=== PATIENT | male | born 1960 | race Caucasian/White ===

== ENCOUNTER 2020-11-21 07:52 | Outpatient (CLI) | payer MEDICARE, BC, SELFPAY ==
--- NOTE | 2020-11-21 08:04 | CT_ITS ---
WS: [id number] CT NECK TECHNIQUE: Contrast-enhanced CT of the neck with coronal and sagittal reformatted images. CLINICAL INFORMATION: ACUTE SIALOADENTITIS, MUCOCELE OF SALIVARY GLAND COMPARISON: None. DLP: 1661.[address] scans at [facility] use at least one of these dose optimization techniques: automat ed exposure control; mA and/or kV adjustment per patient size (includes targeted exams where dose is matched to clinical indication); or iterative reconstruction. FINDINGS: Palpable marker overlying the tail of the right parotid gland inferiorly. Due to the palpable marker is a well-circumscribed low-attenuation lesion measuring 1.5 x 0.9 x 1.4 cm. Associated peripheral en hancement. This appears well circumscribed. Left parotid gland appears normal. Some images degraded d ue to extensive dental beam hardening artifact. Submandibular glands are normal. Normal parapharyngeal fat. Normal posterior nasopharynx. Normal [place] tonsils. No cervical lymphadenopathy. Lung apices are well aerated. Moderate spondylitic changes cervical spin e. Partially visualized intracranial contents are normal. Mastoid air cells and paranasal sinuses are we ll aerated. CT/CT neck w con* [id number] IMPRESSION: 1. Deep to the palpable marker overlying the right neck is a well-circumscribe d low-attenuation peripheral enhancing lesion in the deep right parotid tail in feriorly. This measures 1.5 x 0.9 x 1.4 cm. This can be further evaluated with ultrasound. Recommend ENT consultation. This lesion is nonspecific but consider ations include benign and malignant parotid neoplasms or possibly necrotic lymp h node. 2. Left parotid Gland appears normal. 3. Submandibular glands are normal. 4. No evidence of supraglottic or glottic mass. 5. Normal parapharyngeal fat. 6. No cervical lymphadenopathy. 7. Moderate spondylitic changes cervical spine.
[2020-11-21] MEDS: iohexol 300 mg/mL 100 mL Btl IV (08:39)
== END 2020-11-21 07:53 | disposition home or self-care (01) ==
PROVIDERS: Visit Provider Specialist
DX: K11.21 Acute sialoadenitis (principal); K11.6 Mucocele of salivary gland
CPT/HCPCS: 70491; Q9967

== ENCOUNTER → 2022-01-15 15:05 | Outpatient (BNVA) | payer MEDICARE, BC, SELFPAY | PROVIDERS: Referring Provider Dermatology; Visit Provider Podiatrist Foot & Ankle Surgery | DX: Q82.8 Other specified congenital malformations of skin (principal); L84 Corns and callosities; M79.672 Pain in left foot; E11.9 Type 2 diabetes mellitus without complications | CPT/HCPCS: 99203 ==

== ENCOUNTER → 2022-01-15 15:43 | Outpatient (BNVA) | payer MEDICARE, BC, SELFPAY | PROVIDERS: Referring Provider Dermatology; Visit Provider Podiatrist Foot & Ankle Surgery | DX: M79.672 Pain in left foot (principal); L84 Corns and callosities | CPT/HCPCS: 73630; 99203 ==

== ENCOUNTER → 2022-02-13 08:58 | Outpatient (BNVA) | payer MEDICARE, BC, SELFPAY | PROVIDERS: Visit Provider Podiatrist Foot & Ankle Surgery | DX: Q82.8 Other specified congenital malformations of skin (principal); E11.9 Type 2 diabetes mellitus without complications; M77.42 Metatarsalgia, left foot; Z79.4 Long term (current) use of insulin | CPT/HCPCS: 17110; 99214 ==

== ENCOUNTER 2022-02-20 10:41 | Day surgery (SDC) | payer MEDICARE, BC, SELFPAY ==
[2022-02-19 11:21] VITALS: BMI 38.0
[2022-02-20] VITALS (8 sets, daily range): BP systolic 136–169; BP diastolic 73–90; PULSE 70–90; RESP 14–18; TEMP 36.2–36.8; O2SAT 97–98
--- NOTE | 2022-02-20 | SCC_ITS ---
Procedure done: Left foot distal third metatarsal floating osteotomy 54 seconds of fluoroscopic guidance, for a cumulative dose of 0.918 mGy, was provided to Dr. Rocha by the radiology department. C-arm images of the left foot were saved for the patient's permanent record. BUCK
--- NOTE | 2022-02-20 | XR_ITS ---
WS: [id number] Exam: XR foot LT 2V [id number] Date/Time of Exam: 02/20/2022 12:00 AM Reason For Exam: Left foot distal third metatarsal floating osteotomy Multiple anterior posterior C-arm images of the left forefoot are submitted for evaluation. The final AP image depicts an osteotomy involving the neck of the third metatarsal. No other postoper ative changes are identified.
--- NOTE | 2022-02-20 10:07 | ANES.PREANE2 ---
Pre-Anesthetic Assessment Height/Weight: Height 1.78 m Weight 120.202 kg Preop Diagnosis: metatarsalgia porokeratosis Operation Date: 02/20/22 12:00 Proposed Procedures p [Left foot 3rd metatarsal distal metatarsal osteotomy CPT 13150,M77.42,L98.8(Left) - Nigel Rocha DPM Familial anesthetic complications: none Was Beta Jm taken within 24 hours: N/A Was Clonidine taken within 24 hours: N/A Last intake: 02/19/22 Social Tobacco and No alcohol Exam alert, oriented x 3, clear to auscultation bilaterally and regular rate & rhythm Airway Submandibular: within normal limits Cervical ROM: within normal limits Mallampati: Class I Dentition: chipped Pulmonary Asthma, Chronic Obstructive Pulmonary Disease and Sleep Apnea CV/HEM None reported METS > 4 None reported Hepatic None reported GI None reported Metabolic Diabetes Mellitus Musc/skel Left renata metatarsalgia porokeratosis Neuropsych None reported Anesthetic Plan ASA status: 3 Anesthesia: Anesthesia Evaluation, General and MAC Other: I discussed with the patient risks, goals, and benefits of MAC and general anesthesia. We discussed spectrum of MAC anesthesia including conversion to general as well as possibility of recall of intraoperative stimuli including discomfort/pain. Patient agrees to proceed with MAC. Risk of > 500 ml blood loss (7ml/kg in children): No Medications/Allergies Home Medications Medication Instructions Recorded Confirmed Last Taken Type COVID-19 antigen test (BinaxNOW #1 ea 02/13/22 02/13/22 Unknown History COVID-19 Ag Self Test) arformoterol 15 mcg/2 mL solution 15 ml inhalation 2XD 02/13/22 02/19/22 Unknown History for nebulization (Brovana) blood sugar diagnostic (Accu-Chek #10 ea 02/13/22 02/13/22 Unknown History Ines Plus test strp) bumetanide 2 mg tablet 2 tab PO 2XD 02/13/22 02/19/22 02/19/22 History dextroamphetamine-amphetamine 20 20 ea PO 2XD 02/13/22 02/19/22 02/19/22 History mg tablet ergocalciferol (vitamin D2) 1,250 See Rx Instructions .Route .COMPLEX 02/13/22 02/19/22 02/19/22 History mcg (50,000 unit) capsule insulin aspart U-100 100 unit/mL 15 ml SUBCUT 3XD 02/13/22 02/19/22 02/19/22 History (3 mL) subcutaneous pen (Novolog Flexpen U-100 Insulin aspart) insulin detemir U-100 100 unit/mL 50 ml SUBCUT 2XD 02/13/22 02/19/22 02/19/22 History (3 mL) subcutaneous pen (Levemir FlexTouch U-100 Insulin) ketoconazole 2 % shampoo 2 ml topical 1XD 02/13/22 02/20/22 02/20/22 History levalbuterol tartrate 45 45 g inhalation DIRECTED 02/13/22 02/19/22 02/20/22 History mcg/actuation aerosol inhaler oxycodone 15 mg tablet 15 tab PO 2XD 02/13/22 02/19/22 02/19/22 History prazosin 1 mg capsule 1 cap PO 2XD 02/13/22 02/19/22 02/19/22 History sildenafil (pulm.hypertension) 20 20 ea PO 3XD 02/13/22 02/19/22 02/19/22 History mg tablet tizanidine 4 mg capsule 4 cap PO 2XD 02/13/22 02/19/22 02/19/22 History oxycodone 5 mg tablet 5 mg PO Q6H Post op pain 3 days 02/20/22 Unknown Rx #12 tabs Allergies Allergy/AdvReac Type Severity Reaction Status Date / Time NSAIDS (Non-Steroidal Allergy Severe ALGY-Anaphy Verified 02/19/22 11:07 Anti-Inflamma laxis Acetaminophen Allergy Severe ALGY-Anaphy Uncoded 02/13/22 09:05 laxis Penicillin Allergy Severe ALGY-Anaphy Uncoded 02/13/22 09:05 [facility]is [facility] Social History Smoking and tobacco status: never smoked Data Anesthesia : 02/20/22 11:17 Cardiac Studies: No Data to Display
--- NOTE | 2022-02-20 11:05 | ECG_ITS ---
[facility] Test Date: 2022-02-20 Pat Name: Flex aKmara Department: Room: Gender: Male [employer]: : 1960 Requested By: Krysta Trujillo Order Number: [id number] Wenceslao MD: Oswald Peña M.D. Measurements Intervals [place] Rate: 72 P: 79 WI: 176 QRS: -75 QRSD: 142 T: 55 QT: 396 QTc: 434 Interpretive Statements SINUS RHYTHM LEFT AXIS DEVIATION [QRS AXIS < -30] INTRAVENTRICULAR CONDUCTION DELAY [130+ ms QRS DURATION] No previous ECG available for comparison Electronically Signed On 02-20-2022 20:50:07 CDT by Oswald Peña M.D. [id number]
[2022-02-20 11:24] LABS: Glucose Point of Care 103 mg/dL (70-110)
[2022-02-20] MEDS: gabapentin 300 mg Capsule PO (11:31)
[2022-02-20] MEDS: sodium chloride 0.9% 1,000 ML 30 ML IV (11:32)
--- NOTE | 2022-02-20 11:35 | W.PM.OPSUD ---
Surgery/Procedure H&P Update DATE OF PROCEDURE: February 20, 2022 DATE H&P PERFORMED: 02/13/22 CHANGES TO PREVIOUS DOCUMENTATION: No changes to previous documentation PREOP DIAGNOSIS: Left foot metatarsalgia PRIMARY INDICATION FOR PROCEDURE: Left foot metatarsalgia PLANNED PROCEDURE: Operation Date: 02/20/22 12:00 Proposed Procedures p [Left foot 3rd metatarsal distal metatarsal osteotomy CPT 15650,M77.42,L98.8(Left) - Nigel Rocha DPM
[2022-02-20] MEDS: clindamycin 600 MG/50 ML PREMIX 100 MG IV (12:05)
[2022-02-20] MEDS: lidocaine 1% INJ 20 mL INJECTION (12:10)
[2022-02-20 12:12] LABS: Anion Gap 12.7 (5-19); Blood Urea Nitrogen 13 mg/dL (8-23); Calcium 9.2 mg/dL (8.5-10.5); Carbon Dioxide 31 mmol/L (22-29); Chloride 100 mmol/L (98-107); Glomerular Filtration Rate 85.2 mL/min (90-130); Glucose 105 mg/dL (65-115); Osmolality Calculated 290 mOsm/kg (285-295); Potassium 3.7 mmol/L (3.5-5.1); Sodium 140 mmol/L (136-145)
--- NOTE | 2022-02-20 13:00 | PM.OP ---
Operative Report Date of procedure: February 20, 2022 Pre-op diagnosis: Preop Diagnosis Left foot metatarsalgia Post-op diagnosis: Same Procedure done: Left foot distal third metatarsal floating osteotomy Implants: None Specimens removed/disposition: None Surgeon: Dr. Nigel Rocha DPM Estimated blood loss: 10 cc's no tourniquet Complications: none Brief History: Patient has a history of chronic porokeratosis of third metatarsal head with plantarflexed third metatarsal head and metatarsalgia. For the past 10 years she has been dealing with this and wants something more definitive done as far as treatment goes. Procedure: Patient is a 61-year-old male that has a history of left foot metatarsalgia and chronic porokeratosis. The patient has had the aforementioned chief complaint for some time. Conservative treatment measures have been attempted and the patient has opted for surgical intervention at thistime. A lengthy discussion regarding the procedure, including risks and complications has been had with the patient and is noted in the recent clinic note. Written and verbal consent have been obtained. All patient questions have been answered to the patient?s satisfaction. No written or verbal guarantees have been given or implied. The patient has been NPO since midnight. The history has been reviewed and the history and physical is current. The signed consent was confirmed and placed in the patient chart. Patient imaging has been reviewed and is consistent with thediagnosis. Under mild sedation, the patient was brought into the operating room and placed on the table in the supine position. IV antibiotics were given by the anesthesia team as preoperative surgical prophylaxis. General sedation was then performed by the anesthesia team. The operative extremity was then prepped and draped in the usual fashion. The left foot was then anesthetized using 20 cc of 1% lidocaine plain mixed with 0.25% Marcaine plain. After prep, the following procedure was then performed. Attention was directed to the left foot where a 15 blade was used to make a stab incision on the medial aspect of the third metatarsal at the level of the metatarsal neck. Hemostat was used to bluntly dissect down to the metatarsal neck. Next a Alissa bur size 2 x 12 mm from [employer] was inserted along the medial aspect of the metatarsal neck. A transverse osteotomy through the neck of the third metatarsal was then performed using this bur. The bur was removed and the site was irrigated with copious amounts of sterile saline. This was visualized under C-arm fluoroscopy. The head of the third metatarsal was then noted to be floating at this point. The stab incision was closed with 4-0 Monocryl before being dressed with Xeroform 4 x 4 gauze Kerlix and Stew bandage. The patient was then placed in a postoperative shoe. The patient tolerated the procedure and anesthesia well and without complication. The patient was transported from the operating room to the recovery room with vital signs stable and vascular status intact to all digits of the left foot foot. The patient was given both written and verbal instructions to remain weightbearing as tolerated to the operative extremity, to keep dressings/splint clean, dry and intact and to take pain medication as directed. The patient will follow-up in the outpatient setting at their scheduled appointment. The patient was discharged with my personal number and was instructed to call if any questions or issues should arise. They were discharged home once anesthesia criteria was met.
--- NOTE | 2022-02-20 16:41 | ANE.PACU2 ---
Inpatient post-anesthesia follow up: Airway intact: Yes Vital signs: Temperature 98.3 F Pulse Rate 70 Respiratory Rate 18 Blood Pressure 145/88 Pulse Oximetry 97 Oxygen Delivery Me thod Room Air Oxygen Flow Rate 6 Fraction of Inspir ed Oxygen Hydration adequate: Yes Nausea and vomiting: No Pain level: 1 Mental status: Baseline
== END 2022-02-20 13:28 | disposition home or self-care (01) ==
PROVIDERS: Anesthesiology; PCP Family Medicine; Visit Provider Podiatrist Foot & Ankle Surgery
PROC: (CPT 28308; principal; 2022-02-20 12:00)
DX: M77.42 Metatarsalgia, left foot (principal); G47.30 Sleep apnea, unspecified; E11.9 Type 2 diabetes mellitus without complications; J44.9 Chronic obstructive pulmonary disease, unspecified; Z79.4 Long term (current) use of insulin
CPT/HCPCS: 28308; 36416; 73620; 76000; 80048; 82962; 93005; J1100; J2405; J2704; J3010; J3490; J7030

== ENCOUNTER → 2022-02-28 08:29 | Outpatient (BNVA) | payer MEDICARE, BC, SELFPAY | PROVIDERS: PCP Family Medicine; Visit Provider Podiatrist Foot & Ankle Surgery | DX: Q82.8 Other specified congenital malformations of skin (principal); E11.9 Type 2 diabetes mellitus without complications; M77.42 Metatarsalgia, left foot; Z79.4 Long term (current) use of insulin | CPT/HCPCS: 73630; 99024 ==

== ENCOUNTER → 2022-03-14 09:23 | Outpatient (BNVA) | payer MEDICARE, BC, SELFPAY | PROVIDERS: PCP Family Medicine; Visit Provider Podiatrist Foot & Ankle Surgery | DX: Q82.8 Other specified congenital malformations of skin (principal); E11.9 Type 2 diabetes mellitus without complications; Z79.4 Long term (current) use of insulin | CPT/HCPCS: 73630; 99024 ==

== ENCOUNTER → 2022-04-04 11:13 | Outpatient (BNVA) | payer MEDICARE, BC, SELFPAY | PROVIDERS: PCP Family Medicine; Visit Provider Podiatrist Foot & Ankle Surgery | DX: M77.42 Metatarsalgia, left foot (principal); E11.9 Type 2 diabetes mellitus without complications; Q82.8 Other specified congenital malformations of skin; G62.9 Polyneuropathy, unspecified; M20.42 Other hammer toe(s) (acquired), left foot; Z79.84 Long term (current) use of oral hypoglycemic drugs | CPT/HCPCS: 28011; 73630; A6219 ==

== ENCOUNTER → 2022-04-11 08:14 | Outpatient (BNVA) | payer MEDICARE, BC, SELFPAY | PROVIDERS: PCP Family Medicine; Visit Provider Podiatrist Foot & Ankle Surgery | DX: M77.42 Metatarsalgia, left foot (principal); E11.9 Type 2 diabetes mellitus without complications; Q82.8 Other specified congenital malformations of skin; G62.9 Polyneuropathy, unspecified; M20.42 Other hammer toe(s) (acquired), left foot; Z79.4 Long term (current) use of insulin | CPT/HCPCS: 99024 ==

== ENCOUNTER → 2023-09-22 14:02 | Outpatient (BNVA) | payer MEDICARE, SELFPAY | PROVIDERS: PCP Family Medicine; Visit Provider Podiatrist Foot & Ankle Surgery | DX: M20.42 Other hammer toe(s) (acquired), left foot (principal); M77.42 Metatarsalgia, left foot; Q82.8 Other specified congenital malformations of skin; G62.9 Polyneuropathy, unspecified; E11.69 Type 2 diabetes mellitus with other specified complication; Z79.4 Long term (current) use of insulin | CPT/HCPCS: 28010 ==

== ENCOUNTER → 2023-10-06 13:44 | Outpatient (BNVA) | payer MEDICARE, SELFPAY | PROVIDERS: PCP Family Medicine; Visit Provider Podiatrist Foot & Ankle Surgery | DX: M77.42 Metatarsalgia, left foot (principal); Q82.8 Other specified congenital malformations of skin; G62.9 Polyneuropathy, unspecified; M20.42 Other hammer toe(s) (acquired), left foot; E11.42 Type 2 diabetes mellitus with diabetic polyneuropathy; Z79.4 Long term (current) use of insulin | CPT/HCPCS: 99213 ==